=== PATIENT | female | born 1940 | race Caucasian/White ===

== ENCOUNTER → 2016-06-24 | Outpatient (CLI) | payer OTHER | END | disposition home or self-care (01) | LOC: CFH 08:22 | PROVIDERS: ATTEND Nurse Practitioner Family | DX: Z12.31 Encounter for screening mammogram for malignant neoplasm of breast (principal); Z12.2 Encounter for screening for malignant neoplasm of respiratory organs; I25.10 Atherosclerotic heart disease of native coronary artery without angina pectoris; F17.210 Nicotine dependence, cigarettes, uncomplicated | CPT/HCPCS: 77063; G0202; G0297 ==

== ENCOUNTER 2019-10-14 08:24 | Outpatient (CLI) | payer MEDICARE | END 2019-10-14 23:59 | disposition home or self-care (01) | LOC: CARD 08:24 | PROVIDERS: ATTEND Internal Medicine | DX: R20.2 Paresthesia of skin (principal) | CPT/HCPCS: 95909 ==

== ENCOUNTER 2020-10-05 05:56 | Observation (INO) | payer MEDICARE ==
[~2020-10-05] VITALS: Ht 162.6 cm; Wt 74.2 kg
[2020-10-05] MEDS: SODIUM CHLORIDE 0.9% 1,000 ML IV SCH ×2 (06:30→09:53)
[2020-10-05] MEDS ORDERED: RIVA20TA PO (06:38)
[2020-10-05] MEDS ORDERED: DILT240T8 PO (06:44)
[2020-10-05] MEDS ORDERED: LOSA50TA14 PO (06:44)
[2020-10-05] MEDS ORDERED: ALBU90AE2 INH (06:46)
[2020-10-05] MEDS ORDERED: DENO60DI IM (06:47)
[2020-10-05 06:48] LABS: BASOPHILS % (AUTO) 1 % (0-1); EOSINOPHILS % (AUTO) 3 % (1-7); LYMPHOCYTES % (AUTO) 24 % (22-44); MEAN CORPUSCULAR HEMOGLOBIN 33.4 pg (27.0-34.8); MEAN CORPUSCULAR HGB CONC 33.5 g/dL (32.4-35.8); MEAN PLATELET VOLUME 7.5 fL (7.4-10.4); MONOCYTES % (AUTO) 7 % (2-9); NEUTROPHILS % (AUTO) 65 % (42-75); PLATELET COUNT 235 x10^3/uL (130-400); RED BLOOD COUNT 4.69 x10^6/uL (3.82-5.3); RED CELL DISTRIBUTION WIDTH 14.9 % (9.6-15.2)
[2020-10-05] MEDS ORDERED: CEFAZOLIN PMX 1GM/50ML 50 ML ONE (06:53)
[2020-10-05] MEDS ORDERED: LIDOCAINE 1%, 20ML ONE (06:53)
[2020-10-05] MEDS ORDERED: CEFAZOLIN 1,000 MG ONE (06:53)
[2020-10-05] MEDS ORDERED: FENTANYL PF 100 MCG/2ML ONE ×2 (06:53→08:28)
[2020-10-05] MEDS ORDERED: MIDAZOLAM 1 MG/ML, 2ML ONE (06:53)
[2020-10-05 06:57] VITALS: BP 127/63
[2020-10-05 06:59] LABS: ANION GAP 6 mmol/L (5-15); CALCIUM 8.6 mg/dL (8.5-10.1); CHLORIDE 106 mmol/L (98-107); CREATININE 1.16 mg/dL (0.55-1.02)
[2020-10-05] MEDS ORDERED: ALBUTEROL HFA 90 MCG/SPRAY INH PRN (09:30)
[2020-10-05] MEDS ORDERED: HOLD MEDICATION MC PRN (09:30)
[2020-10-05] MEDS ORDERED: ACETAMINOPHEN 325 MG TABLET PO PRN (09:30)
[2020-10-05] MEDS ORDERED: DENOSUMAB IM SCH (09:30)
[2020-10-05 12:50] VITALS: BP 128/70
[2020-10-05] MEDS: CEFAZOLIN PMX 1GM/50ML 50 ML IVPB SCH ×2 (16:00→23:43)
[2020-10-05] MEDS: SODIUM CHLORIDE FLUSH 10ML SYR IVF SCH (21:24)
[2020-10-05 21:38] VITALS: BP 150/96
[2020-10-06 02:04] VITALS: BP 134/72
[2020-10-06 07:32] VITALS: BP 137/79
[2020-10-06] MEDS: SODIUM CHLORIDE FLUSH 10ML SYR IVF SCH (07:32)
[2020-10-06] MEDS ORDERED: ACET325T26 PO (07:50)
[2020-10-06] MEDS ORDERED: DILTIAZEM 240 MG CAP.ER.24H PO SCH (09:00)
[2020-10-06] MEDS ORDERED: LOSARTAN 50MG TABLET PO SCH (09:00)
== END 2020-10-06 09:50 | disposition home or self-care (01) ==
LOC: CACL 05:56 → ORIP 09:05 → 5SO 09:19 → DCLOUNGE 10-06 09:42
PROVIDERS: ADMIT Internal Medicine Cardiovascular Disease; ATTEND Internal Medicine Cardiovascular Disease
DX: I49.5 Sick sinus syndrome (principal); I46.9 Cardiac arrest, cause unspecified; I48.0 Paroxysmal atrial fibrillation; J44.9 Chronic obstructive pulmonary disease, unspecified; E78.00 Pure hypercholesterolemia, unspecified; I12.9 Hypertensive chronic kidney disease with stage 1 through stage 4 chronic kidney disease, or unspecified chronic kidney disease; N18.31 Chronic kidney disease, stage 3a; I25.10 Atherosclerotic heart disease of native coronary artery without angina pectoris; M81.0 Age-related osteoporosis without current pathological fracture; F17.200 Nicotine dependence, unspecified, uncomplicated; Z79.899 Other long term (current) drug therapy
CPT/HCPCS: 33208; 36415; 71045; 71046; 80048; 85025; 96365; 96366; 99156; 99157; C1779; C1785; C1892; G0378; J0690; J2250; J3010; J3490